=== PATIENT | male | born 1955 | race Caucasian/White ===

== ENCOUNTER 2023-03-18 06:57 | Outpatient (CLI) | payer MEDICARE, OTHER, SELFPAY ==
[2023-02-26 14:44] VITALS: BMI 24.9
--- NOTE | 2023-02-26 14:49 | PC.NURSE ---
Pre Radiology instructions Report to the outpatient [facility] on date _03/08/23____ at time __7:00AM for procedure Time: _9:00AM___ YOU MAY BE MONITORED AT HOSPITAL FOR UP TO 4 HOURS AFTER YOUR PROCEDURE. A visitor will be allowed to accompany the patient into the hospital. You and your visitor will be asked to self-screen and do not enter if you have any COVID symptoms. A mask is OPTIONAL within the hospital. Patients are to have no food or drink 6 hours prior to procedure time Driving will be restricted after the procedure, you must have a person to drive you home. Labs will be drawn in preop area and once reviewed, you will be taken to radiology area for procedure. When the procedure is completed, you will be taken to outpatient where you will be monitored for several hours. You may have one visitor in this area. Other than holding anti-coagulants, patient may take other medication(s) as scheduled. Prior to your appointment date patients are instructed to hold anti-coagulants after discussing with ordering provider to stop. If unable to discontinue anti-coagulants please notify radiologist. ? No aspirin or warfarin (Coumadin) for 7 days prior to the procedure. ? No clopidogrel (Plavix), ticagrelor (Brilinta), prasugrel (Effient) or dabigatran (Pradaxa) for 5 days prior to the procedure. ? No rivaroxaban (Xarelto), apixaban (Eliquis), dipyridamole (Aggrenox or Persantine) or cilostazol (Pletal) for 2 days prior to the procedure. Medications to discontinue per physician: __NONE Date to take last dose: Please leave all valuables, including medications, at home the day of procedure. The hospital will not accept responsibility for valuables. Wear comfortable, loose fitting clothing.? Follow any additional instructions given to you from ordering provider. Telephone instructions given to _PATIENT and asked if any additional questions and then verbalized understanding. Patient advised to call scheduling provider office or registration scheduling [phone] if any additional questions.
--- NOTE | 2023-03-04 15:50 | PC.NURSE ---
Pre Radiology instructions Report to the outpatient [facility] on date _03/18/23____ at time __7:00AM for procedure Time: _9:00AM___ YOU MAY BE MONITORED AT HOSPITAL FOR UP TO 4 HOURS AFTER YOUR PROCEDURE. A visitor will be allowed to accompany the patient into the hospital. You and your visitor will be asked to self-screen and do not enter if you have any COVID symptoms. A mask is OPTIONAL within the hospital. Patients are to have no food or drink 6 hours prior to procedure time Driving will be restricted after the procedure, you must have a person to drive you home. Labs will be drawn in preop area and once reviewed, you will be taken to radiology area for procedure. When the procedure is completed, you will be taken to outpatient where you will be monitored for several hours. You may have one visitor in this area. Other than holding anti-coagulants, patient may take other medication(s) as scheduled. Prior to your appointment date patients are instructed to hold anti-coagulants after discussing with ordering provider to stop. If unable to discontinue anti-coagulants please notify radiologist. ? No aspirin or warfarin (Coumadin) for 7 days prior to the procedure. ? No clopidogrel (Plavix), ticagrelor (Brilinta), prasugrel (Effient) or dabigatran (Pradaxa) for 5 days prior to the procedure. ? No rivaroxaban (Xarelto), apixaban (Eliquis), dipyridamole (Aggrenox or Persantine) or cilostazol (Pletal) for 2 days prior to the procedure. Medications to discontinue per physician: __NONE Date to take last dose: Please leave all valuables, including medications, at home the day of procedure. The hospital will not accept responsibility for valuables. Wear comfortable, loose fitting clothing.? Follow any additional instructions given to you from ordering provider. Telephone instructions given to __PATIENT and asked if any additional questions and then verbalized understanding. Patient advised to call scheduling provider office or registration scheduling [phone] if any additional questions.
--- NOTE | ~2023-03-18 | CT_ITS ---
EXAMINATION: XR myelogram spine lumbosacral, CT lumbar spine w con DATE: 03/18/2023 10:04 INDICATION: Ankylosing spondylitis TECHNIQUE: Informed consent was obtained from the patient. Risks and benefits including bleeding, in fection, spinal headache and nerve root injury were discussed with the patient. The patient agreed t o proceed. Time out procedure was performed. [employer] radiograph was obtained. An entry site was chos en at the L5-S1 level. A median approach was used. Standard sterile prep was done with Betadine. E ntry site was infiltrated with 3 cc 1% lidocaine. A 3.5 22G spinal needle was then inserted into th e spinal canal. 17 mL Omnipaque 180 were then injected into the thecal sac. Frontal, lateral and CRUZ fluoroscopic images were then acquired. The patient was then transferred to CT scan for spiral CT of the lumbar spine. Computed tomography (CT) of the lumbar spine was performe d with intrathecal contrast but without intravenous contrast. Automated exposure control and iterativ e reconstruction technique were employed. The dose-length product was 509.07 mGy-cm. Following this p atient was transferred to recovery area for 2 hours of observation. There are no immediate complicat ions. Coronal and sagittal reformatted images of the lumbar spine CT were also reviewed. COMPARISON: Outside institution lumbar spine CT performed 07/11/2022 and MRI performed 04/27/2018 FINDINGS: Fluoroscopic images demonstrate the needle entering the thecal sac at the level of L5-S1 a nd with contrast extending freely to the thoracolumbar junction without evident significant central c anal stenosis. There a postoperative changes throughout the lumbar spine. This includes laminectomies at L1, L3 and L5 and partial laminectomy at L2. Anterior spinal fusion with interbody bone graft cag es at L1-L2 through L4-L5. There is also instrumented L1-S1 posterior spinal fusion with bilateral ve rtical tres and pedicle screw fixations. There is also internal fixation extending across the right sa croiliac joint. Multiple surgical clips bilaterally in the pelvis suggesting prior pelvic lymph node dissections. Pain pump projects over the left flank with catheter extending into the central canal at level of L2-L3 and extending cephalad beyond the cephalad margin of the [id number] on CT imaging which is at T10. On the wrapper opener localizer images there is additional power supply for a spinal stimulat or leads project more cephalad over the left flank with leads projecting over the central canal at le shivani of T7 and T8. A degree lumbar levocurvature. 2 mm retrolisthesis T11 on T12 and T12 on L1. Minimal likely physiolo gic anterior wedging at T11 and T12. Schmorl's nodes along the inferior endplates of T10-T12. L1 limb us vertebra with chronic unfused apophyseal center along the anterior superior endplate. Moderate dis c height loss with vacuum phenomena at T12-L1. Mild to moderate disc height loss at T10-T11 and mild disc height loss at T11-T12. The following disc levels are specifically discussed: T10-T11: Disc is mildly bulging. There is mild bilateral facet osteoarthritis. There is mild bilatera l neural foraminal stenosis. There is mild central canal stenosis. T11-T12: Disc is mildly bulging. There is mild bilateral facet joint osteoarthritis. There is no neur al foraminal stenosis. There is minimal central canal stenosis. T12-L1: Disc is bulging. There is mild bilateral facet joint osteoarthritis. There is mild bilateral neural foraminal stenosis. There is mild central canal stenosis. L1-L2: Discectomy with mild hypertrophic change at the posterior endplates. There is also posterior s nisa fusion. There is minimal bilateral neural foraminal stenosis. Posterior decompression with L4 l aminectomy. There is no central canal stenosis. L2-L3: Discectomy with anterior and posterior spinal fusion.. There is no neural foraminal stenosis. There is
[2023-03-18 07:30] VITALS: BP 127/62; PULSE 55; RESP 18; TEMP 36.4; O2SAT 99
[2023-03-18 08:07] LABS: Mean Platelet Volume 9.5 fl (7.4-10.4); Platelet Count Result 260 k/mm3 (150-375)
[2023-03-18 08:19] LABS: INR 0.9; Prothrombin Time 12.7 Seconds (11.1-14.7)
[2023-03-18 10:00] VITALS: BP 115/50; PULSE 47; RESP 16; TEMP 36.7; O2SAT 100
[2023-03-18 10:30] VITALS: BP 114/51; PULSE 52; RESP 16; O2SAT 100
[2023-03-18 11:30] VITALS: BP 112/55; PULSE 53; RESP 16
[2023-03-18 12:00] VITALS: BP 111/57; PULSE 57; RESP 16
== END 2023-03-18 12:11 | disposition home or self-care (01) ==
PROVIDERS: PCP Family Medicine; Referring Provider Neurological Surgery; Visit Provider Radiology Diagnostic Radiology
DX: M45.9 Ankylosing spondylitis of unspecified sites in spine (principal); N18.32 Chronic kidney disease, stage 3b; M47.894 Other spondylosis, thoracic region
CPT/HCPCS: 36415; 62304; 72132; 85049; 85610; Q9965